=== PATIENT | female | born 1970 | race Caucasian/White ===

== ENCOUNTER → 2021-04-10 11:50 | Outpatient (CLI) | payer BC, SELFPAY ==
--- NOTE | ~2021-04-10 | XR_ITS ---
EXAMINATION: [id number]_[id number] DATE: 04/10/2021 12:34 INDICATION: Right-sided pleurodynia. TECHNIQUE: A frontal view of the chest and 2 views on 3 radiographs of the right ribs were obtained. COMPARISON: Chest 2 views 03/07/2007 FINDINGS: There are asymmetric airspace opacities at right lung apex. There are staple lines in upper right lung. No pleural effusion or pneumothorax. The heart size is normal. IMPRESSION: 1. Asymmetric airspace opacities at right lung apex, likely scarring. Consider noncontrast chest CT t o exclude malignancy. 2. No right rib fracture. Reviewed, dictated and finalized at location A. IMPRESSION: 1. Asymmetric airspace opacities at right lung apex, likely scarring. Consider noncontrast chest CT to exclude malignancy. 2. No right rib fracture.
== END ==
PROVIDERS: PCP Internal Medicine; Visit Provider Internal Medicine
DX: R07.81 Pleurodynia (principal); R91.8 Other nonspecific abnormal finding of lung field
CPT/HCPCS: 71101

== ENCOUNTER → 2021-04-20 13:22 | Outpatient (CLI) | payer BC, SELFPAY ==
--- NOTE | ~2021-04-20 | CT_ITS ---
EXAMINATION: CT chest high resolution wo co DATE: 04/20/2021 13:45 INDICATION: History of Mycobacterium avium intracellulare infection TECHNIQUE: Computed tomography (CT) of the chest was performed without intravenous contrast. The dose -length product (DLP) was 154.76 mGy-cm. Automated exposure control and iterative reconstruction tech [employer] were employed. COMPARISON: Chest radiograph dated 04/10/2021 FINDINGS: There are changes of right partial pneumonectomy. A thick-walled area of cavitation is pres ent in the right lung apex which measures up to 5.6 x 3.0 cm in greatest axial dimension. There is sc arring in the left lung apex. Moderate emphysema is noted. There is no pleural effusion or pneumothor ax. No pathologically enlarged thoracic lymph nodes are identified. The heart size is normal. There i s moderate thoracic spondylosis. IMPRESSION: 1. Postsurgical changes in the right lung with an area of thick walled cavitation of the right lung a pex. Findings are most consistent with patient's history of mycobacterium avium intracellulare infect ion. Differential would include tuberculosis. Correlation with any prior imaging would be helpful to assess interval change. Reviewed, dictated and finalized at location A. IMPRESSION: 1. Postsurgical changes in the right lung with an area of thick walled cavitati on of the right lung apex. Findings are most consistent with patient's history of mycobacterium avium intracellulare infection. Differential would include tub erculosis. Correlation with any prior imaging would be helpful to assess interv al change.
== END ==
PROVIDERS: PCP Internal Medicine; Visit Provider Internal Medicine
DX: R93.89 Abnormal findings on diagnostic imaging of other specified body structures (principal)
CPT/HCPCS: 71250

== ENCOUNTER 2022-07-11 09:14 | Emergency (ER) | payer BC, SELFPAY ==
--- NOTE | 2022-07-11 09:18 | ED.URI ---
HPI - URI/Sore Throat General Chief Complaint: Upper Respiratory Infection Stated Complaint: Right Ear Irritation,Cough Time Seen by Provider: 07/11/22 09:20 Source: patient, RN notes reviewed and old records reviewed Mode of arrival: ambulatory Limitations: no limitations History of Present Illness HPI Narrative: 52-year-old female presents to [facility] with complaints right ear pain, redness to the right eye and cough. Symptoms started a least a month ago, was prescribed antibiotics by her primary care provider states she developed better and then for the last 2 weeks has progressively got worse. Per medical record head cefdinir prescribed on the 05 of May, 2 months ago. Patient reports stress due to passing away, has a wake today Recently started smoking due to stress of the 's illness Has a history of lung surgery Related Data Allergies Allergy/AdvReac Type Severity Reaction Status Date / Time hydrocodone Allergy Mild Unknown Verified 07/11/22 09:15 meperidine Allergy Mild Unknown Verified 07/11/22 09:15 oxycodone Allergy Mild Unknown Verified 07/11/22 09:15 Review of Systems Review of Systems: All systems reviewed & are unremarkable except as noted in HPI and below Constitutional: Constitutional: Reports no additional constitutional complaints Eyes: Eyes: Reports no additional eye complaints ENT: Reports as per HPI Cardiovascular: Cardiovascular: Reports no additional cardiovascular complaints, Denies chest pain and Denies dyspnea Respiratory: Respiratory: Reports as per HPI, Denies chest congestion, Reports cough and Denies dyspnea Gastrointestinal: Gastrointestinal: Reports no additional gastrointestinal complaints, Denies abdominal pain, Denies nausea and Denies vomiting Musculoskeletal: Musculoskeletal: Reports no additional musculoskeletal complaints Integumentary/Breasts: Skin/Breast: Reports system reviewed and no additional complaints, except as docu Neurologic: Reports system reviewed and no additional complaints, except as documented Psychiatric: Psychiatric: Reports no additional psychiatric complaints Allergic/Immunologic: Allergic/Immunologic: Reports no additional allergic/immunologic complaints [facility] Family History Family History Mother Family history of lung cancer Patient's mother is Social History Social History Smoking status: Current every day smoker Tobacco type: cigarettes Second hand tobacco smoke exposure: No Smoking end date: 07/04/11 Alcohol intake: never Comments At the time of my signature, I reviewed and agree with the nursing past medical, surgical, social, and family history. There is no relevant family history pertinent to the patient complaint. Exam Const: General: cooperative, healthy appearing, comfortable, no acute distress, well developed, alert and well nourished Nutritional Appearance: well nourished Orientation/consciousness: patient oriented x3 Limitations: no limitations HENMT: Head: normal to inspection Ears: hearing grossly normal bilaterally and external ears normal Face/Nose/Sinus: Normal external nose present, Normal nares present, Normal nasal mucous membranes and turbinates present and normal facial exam Face and sinus: normal facial exam Mouth: Yes Normal oral and palatal mucosa present, Yes lip normal and Yes moist mucous membranes Throat: posterior oropharynx normal and uvula midline Eyes: General: appearance normal, both eyes and all related structures Alignment and Position: alignment normal Periorbital: periorbital findings normal Conjunctivae: conjunctivae normal Pupils: Equal, round and reactive pupils present EOM: EOMs intact bilaterally Other: Reports right eye redness. Without pain or itching. Denies any drainage, crusting. Neck: Neck: normal visual inspection, full ROM, no lymphaden
[2022-07-11 09:22] VITALS: BP 139/78; PULSE 98; RESP 20; TEMP 36.7; O2SAT 99
== END 2022-07-11 09:28 | disposition home or self-care (01) ==
PROVIDERS: Emergency Provider Nurse Practitioner; PCP Internal Medicine
DX: J40 Bronchitis, not specified as acute or chronic (principal); F17.210 Nicotine dependence, cigarettes, uncomplicated; E78.00 Pure hypercholesterolemia, unspecified; F41.9 Anxiety disorder, unspecified
CPT/HCPCS: 99213; G0463

== ENCOUNTER 2023-01-13 12:35 | Outpatient (CLI) | payer BC, SELFPAY ==
--- NOTE | ~2023-01-13 | XR_ITS ---
EXAMINATION: XR chest 2V DATE: 01/13/2023 12:52 INDICATION: Productive cough. Low-grade fever. TECHNIQUE: Frontal and lateral views of the chest were obtained. COMPARISON: Chest 2 views 03/07/2017, chest CT 04/20/2021 FINDINGS: The lungs are hyperexpanded with lucencies, consistent with emphysema. There is thick-aminata d cavitation at right lung apex. There are airspace opacities in perihilar right upper lobe. There is a staple line in right upper lobe. There are multiple nodules in left mid and upper lung zones. No p leural effusion or pneumothorax. The heart size is normal. IMPRESSION: 1. Worsened bilateral lung disease with an upper lobe predominance, most likely infection. Malignancy is not excluded. Consider CT. 2. Emphysema. Reviewed, dictated and finalized at location E.
== END 2023-01-13 12:36 | disposition home or self-care (01) ==
PROVIDERS: PCP Internal Medicine; Visit Provider Physician Assistant
DX: R05.9 Cough, unspecified (principal); J43.9 Emphysema, unspecified; J84.9 Interstitial pulmonary disease, unspecified
CPT/HCPCS: 71046

== ENCOUNTER → 2023-01-19 14:01 | Outpatient (CLI) | payer BC, SELFPAY ==
--- NOTE | ~2023-01-19 | CT_ITS ---
CT Scan of the Chest without Contrast: Clinical Indication: Abnormal chest x-ray, pneumonia Technique: Contiguous sections were acquired throughout the chest without intravenous contrast. Dose reduction technique was used on this scan by utilizing automated exposure control and iterative recon struction technique. The dose-length product (DLP) was 134.53 mGy-cm. COMPARISON: 04/20/2021 Findings: There is no evidence of any significant mediastinal, hilar or axillary lymphadenopathy. The mediastin al soft tissues appear normal. There is no evidence of pleural or pericardial effusion. There is a large somewhat thick/irregular walled cavitary lesion in the right upper lobe, which is in creased in size since 04/20/2021, now measuring up to approximately 8.5 x 6.4 cm in transverse dimens ions. There is new large area of dense consolidation in the anterior right upper lobe now with possib le focal areas of cavitation or necrosis within it (axial images 20-37 for example). There are chandni us additional scattered pulmonary nodules in the remaining pulmonary lobes, largest probably measurin g 1.1 cm (axial image 51 in the left upper lobe). There is mild emphysematous change in the upper lob es bilaterally, with extensive interstitial prominence in the right upper lobe, and hazy airspace dis ease in the inferior right upper lobe. Images through the upper abdomen reveal no abnormalities. Impression: Large area of dense consolidation in the anterior right upper lobe, as detailed above, with focal are as of internal cavitation or necrosis. There are numerous additional smaller pulmonary nodules throug hout the remainder of the lungs, as detailed above. Diagnostic considerations include both neoplastic /metastatic disease versus infectious process. Correlate with patient's symptomatology and lab work. Consider tissue sampling to establish a histologic diagnosis. Large thick-walled, somewhat irregular cavitary lesion in the right upper lobe, which is increased in size since 04/20/2021. This likely represents a chronic infectious/inflammatory cavitary lesion. Mild emphysematous change in the upper lobes, with extensive hazy/interstitial disease in the right u pper lobe. This could reflect associated element of interstitial pneumonia in the right upper lobe. Reviewed, dictated and finalized at location M. Impression: Large area of dense consolidation in the anterior right upper lobe, as detailed above, with focal areas of internal cavitation or necrosis. There are numerous additional smaller pulmonary nodules throughout the remainder of the lungs, as detailed above. Diagnostic considerations include both neoplastic/metastatic d isease versus infectious process. Correlate with patient's symptomatology and l ab work. Consider tissue sampling to establish a histologic diagnosis. Large thick-walled, somewhat irregular cavitary lesion in the right upper lobe, which is increased in size since 04/20/2021. This likely represents a chronic infectious/inflammatory cavitary lesion. Mild emphysematous change in the upper lobes, with extensive hazy/interstitial disease in the right upper lobe. This could reflect associated element of inter stitial pneumonia in the right upper lobe.
== END ==
PROVIDERS: PCP Internal Medicine; Visit Provider Internal Medicine
DX: R93.89 Abnormal findings on diagnostic imaging of other specified body structures (principal)
CPT/HCPCS: 71250

== ENCOUNTER → 2023-03-29 10:13 | Outpatient (CLI) | payer BC, SELFPAY ==
--- NOTE | ~2023-03-29 | CT_ITS ---
EXAMINATION:CT diagnostic chest wo con DATE: 03/29/2023 10:27 INDICATION: Pneumonia, unspecified organism. TECHNIQUE: Computed tomography (CT) of the chest was performed without intravenous contrast. Automate d exposure control and iterative reconstruction technique were employed. The dose-length product (DLP ) was 138.82 mGy-cm. COMPARISON: Chest CT 01/19/2023, 04/20/21 FINDINGS: There is mild emphysema. There is scarring at left lung apex. There is a chronic cavitary m ass at right lung apex with mildly thick wall. There is a 6.9 x 3.4 cm mass involving the right lung upper lobe, improved from 7.9 x 3.3 cm on 01/19/23. There is a staple line in right lung upper lobe. T here are greater than 40 nodules in the lungs measuring 12 mm or less. The nodules are not in a rando m distribution and demonstrate clustering. A 12 mm nodule left upper lobe measuring 9 mm on 01/19/23. A 12 mm nodule in left upper lobe is unchanged. No pleural effusion. The heart size is normal. No per icardial effusion. There is mild thoracic spondylosis. There is mild chronic height loss of multiple vertebral bodies. IMPRESSION: 1. Scattered pulmonary nodules and right lung masses. These findings may be infection and/or metastat ic disease. PET/CT may be useful to determinate a biopsy target and screen for extrapulmonary finding s. 2. Mild emphysema. Reviewed, dictated and finalized at location E. IMPRESSION: 1. Scattered pulmonary nodules and right lung masses. These findings may be inf ection and/or metastatic disease. PET/CT may be useful to determinate a biopsy target and screen for extrapulmonary findings. 2. Mild emphysema.
== END ==
PROVIDERS: PCP Internal Medicine Pulmonary Disease; Visit Provider Internal Medicine Pulmonary Disease
DX: J18.9 Pneumonia, unspecified organism (principal); Z86.19 Personal history of other infectious and parasitic diseases; J43.9 Emphysema, unspecified; R91.8 Other nonspecific abnormal finding of lung field
CPT/HCPCS: 71250

== ENCOUNTER 2023-04-12 09:10 | Outpatient (CLI) | payer BC, SELFPAY ==
--- NOTE | ~2023-04-12 | PE_ITS ---
EXAMINATION: PET skull to mid thigh DATE: 04/12/2023 11:00 INDICATION: Other nonspecific abnormal finding in lung field. Pulmonary nodule. TECHNIQUE: Blood glucose level was 97 mg/dL. 9.408 mCi of 18-fluorodeoxyglucose (18-FDG) was administ ered i.v. Low dose computed tomography (CT) images were acquired from the base of the brain to the pr oximal thighs for attenuation correction and anatomic localization. Automated exposure control was em ployed. Dose-length product (DLP) was 487 mGy-cm. Positron emission tomography (PET) images were acqu ired in the same distribution. COMPARISON: Chest CT 03/29/2023, 01/19/23, 04/20/21 FINDINGS: Head/neck: There are no pathologically enlarged lymph nodes. Chest: There is mild emphysema. There is mild scarring at left lung apex. There is a chronic cavitary mass in right lung apex with mildly thick wall with increased activity. There is a 6.8 x 3.3 cm mass involving the right lung upper lobe with peripheral increased activity with maximum SUV of 8.7. Ther e is a staple line in right lung upper lobe. There are greater than 40 nodules in the lungs measuring 12 mm or less, some of which have increased activity. The nodules are not in a random distribution a nd demonstrate clustering. No pleural effusion. The heart size is normal. No pericardial effusion. Th ere is mild chronic height loss of multiple vertebral bodies. There is mild thoracic spondylosis. Abdomen/pelvis/proximal thighs: The liver, gallbladder, spleen, pancreas, adrenal glands, and kidneys are normal. There are no dilated loops of bowel. There are no pathologically enlarged lymph nodes. T here is no free intraperitoneal fluid. There is severe lower lumbar spondylosis. IMPRESSION: 1. Scattered pulmonary nodules and right lung masses with increased activity, stable from 03/29/2023. These findings may be infection and/or metastatic disease. 2. Mild emphysema. Reviewed, dictated and finalized at location A. IMPRESSION: 1. Scattered pulmonary nodules and right lung masses with increased activity, s table from 03/29/2023. These findings may be infection and/or metastatic disease . 2. Mild emphysema.
[2023-04-12 09:37] LABS: Glucose Point of Care 97 mg/dl (65-105)
== END 2023-04-12 09:11 | disposition home or self-care (01) ==
PROVIDERS: PCP Internal Medicine; Visit Provider Internal Medicine Pulmonary Disease
DX: R91.8 Other nonspecific abnormal finding of lung field (principal); R91.1 Solitary pulmonary nodule; J43.9 Emphysema, unspecified
CPT/HCPCS: 78815; A9552

== ENCOUNTER 2023-07-28 12:53 | Outpatient (CLI) | payer BC, SELFPAY ==
--- NOTE | ~2023-07-28 | CT_ITS ---
EXAMINATION:CT diagnostic chest wo con DATE: 07/28/2023 13:55 INDICATION: Other nonspecific abnormal finding in lung field. TECHNIQUE: Computed tomography (CT) of the chest was performed without intravenous contrast. Automate d exposure control and iterative reconstruction technique were employed. The dose-length product (DLP ) was 139.98 mGy-cm. COMPARISON: Chest CT 03/29/2023, 01/19/23, 04/20/21 FINDINGS: There are changes of wedge resection of right lung upper lobe. There is chronic thick aminata d cavitation involving right upper lobe with air/fluid level. There is a 6.4 x 3.1 cm mass in the rig ht upper lobe, stable from 03/29/23. There are greater than 20 scattered nodules in the lungs, stable from 01/19/23. The nodules are not in a random distribution and demonstrate clustering. There is mild scarring at left lung apex. No pleural effusion. The heart size is normal. No pericardial effusion. T here is mild thoracic spondylosis. There is mild chronic anterior wedging of multiple vertebral zak s. IMPRESSION: 1. Stable diffuse lung disease, probably infection. 2. Mild emphysema. Reviewed, dictated and finalized at location E. [employer]
== END 2023-07-28 12:54 | disposition home or self-care (01) ==
PROVIDERS: PCP Internal Medicine; Visit Provider Internal Medicine Pulmonary Disease
DX: R91.8 Other nonspecific abnormal finding of lung field (principal); J43.9 Emphysema, unspecified
CPT/HCPCS: 71250